=== PATIENT | male | born 1980 | race Caucasian/White ===

== ENCOUNTER → 2019-04-30 08:35 | Outpatient (BNVA) | payer SELFPAY | PROVIDERS: Family Provider Family Medicine; PCP Family Medicine; Visit Provider Family Medicine | DX: F41.1 Generalized anxiety disorder (principal); K21.9 Gastro-esophageal reflux disease without esophagitis; E78.5 Hyperlipidemia, unspecified | CPT/HCPCS: 80053; 80061; 85025 ==

== ENCOUNTER 2019-10-13 09:20 | Outpatient (CLI) | payer BC, SELFPAY ==
--- NOTE | 2019-10-13 09:00 | PFTS_ITS ---
Date of Study:10/13/19 Date of Dictation: MECHANICS: Forced vital capacity (FVC) is normal. Forced expiratory volume in one second (FEV1) is normal. FEV1/FVC is normal. FLOW VOLUME LOOP: Normal. LUNG VOLUMES: Not measured DIFFUSING CAPACITY FOR CARBON MONOXIDE: Not measured INTERPRETATION: The spirometry is normal. There is no significant postbronchodilator response. MTDD
== END 2019-10-13 09:21 | disposition home or self-care (01) ==
PROVIDERS: Family Provider Family Medicine; PCP Family Medicine; Visit Provider Family Medicine
DX: J45.909 Unspecified asthma, uncomplicated (principal)
CPT/HCPCS: 94060; J7611

== ENCOUNTER → 2019-10-27 07:48 | Outpatient (BNVA) | payer BC, SELFPAY | PROVIDERS: Family Provider Family Medicine; PCP Family Medicine; Visit Provider Specialist | DX: R20.0 Anesthesia of skin (principal); R20.2 Paresthesia of skin | CPT/HCPCS: 95908 ==

== ENCOUNTER 2019-11-02 08:28 | Outpatient (CLI) | payer BC, SELFPAY ==
--- NOTE | 2019-11-02 08:30 | XR_ITS ---
WS: [id number] CERVICAL SPINE TECHNIQUE: 3 views of the cervical spine CLINICAL INFORMATION: right upper extremity numbness COMPARISON: None. FINDINGS: Straightening of the normal cervical lordosis. Normal C1-C2 articulation. Mild facet arthropathy. Min imal spondylitic changes. Normal prevertebral soft tissues. IMPRESSION: Normal cervical spine
--- NOTE | 2019-11-02 09:00 | XR_ITS ---
WS: [id number] SHOULDER RIGHT TECHNIQUE: 3 views of the right shoulder CLINICAL INFORMATION: right upper extremity numbness COMPARISON: None. FINDINGS: Normal acromioclavicular joint. Normal glenohumeral joint. Acromion is normal in appearance. Normal g lenoid. No evidence of acute fracture dislocation. XR/XR shoulder RT min 2V* [id number] IMPRESSION: Normal right shoulder.
== END 2019-11-02 08:29 | disposition home or self-care (01) ==
LOC: RADWPI 08:30
PROVIDERS: Family Provider Family Medicine; PCP Family Medicine; Visit Provider Family Medicine
DX: R20.0 Anesthesia of skin (principal)
CPT/HCPCS: 72040; 73030

== ENCOUNTER 2023-09-02 11:32 | Inpatient (IN) | payer BC, MEDICAID, SELFPAY ==
[2023-09-02 11:39] VITALS: BP 137/95; PULSE 139; TEMP 37.1; O2SAT 96; BMI 25.1
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
--- NOTE | 2023-09-02 11:56 | XRR_ITS ---
PROCEDURE INFORMATION: Exam: XR Right Wrist Exam date and time: 09/02/2023 12:06 PM Age: 43 years old Clinical indication: Injury or trauma; Other: Handcuff pain; Blunt trauma (contusions or hematomas); Wrist; Right TECHNIQUE: Imaging protocol: Radiologic exam of the right wrist. Views: 3 or more views. COMPARISON: No relevant prior studies available. FINDINGS: Bones/joints: Normal. Soft tissues: Normal. XR/XR wrist RT min 3V* [id number] IMPRESSION: No acute findings.
--- NOTE | 2023-09-02 12:00 | ECG_ITS ---
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 Measurements Intervals [place] Rate: 103 P: 81 MO: 138 QRS: -26 QRSD: 80 T: 83 QT: 322 QTc: 422 Interpretive Statements SINUS TACHYCARDIA BORDERLINE LEFT AXIS DEVIATION [QRS AXIS < -20] ABNORMAL RHYTHM ECG No previous ECG available for comparison Electronically Signed On 09-02-2023 21:56:44 CDT by Sina Collins M.D. [email or web address] hillcrest hospitalRuffaloCODY/[email or web address]/[id number]
--- NOTE | 2023-09-02 12:00 | PC.NURSE ---
96 hour hold rights read and reviewed with patient. Patient verbalized understandings. Copy of rights given to patient.
[2023-09-02 12:17] LABS: Basophils # 0.1 10^3/uL (0.0-0.1); Basophils % 0.8 %; Eosinophils # 0.1 10^3/uL (0.0-0.8); Eosinophils % 0.5 %; Hematocrit 48.5 % (37-53); Lymphocytes # 2.2 10^3/uL (0.8-4.8); Lymphocytes % 20.3 %; Mean Corpuscular Hemoglobin 28.8 pg (27-33); Mean Corpuscular Volume 87.4 fl (82-101); Mean Platelet Volume 9.8 fL (7.4-10.4); Monocytes # 0.8 10^3/uL (0.2-0.9); Monocytes % 7.6 %; Neutrophils # 7.51 10^3/uL (1.8-7.7); Neutrophils % 70.5 %; Nucleated Red Blood Cells % 0 %; Platelet Count 313 10^3/cmm (157-399); Red Blood Count 5.55 10^6/uL (3.85-5.65); Red Cell Distribution Width 15.5 % (12.1-15.1); White Blood Count 10.64 10^3/uL (3.29-11.43)
[2023-09-02 12:43] LABS: Alanine Aminotransferase 17 U/L (0-41); Albumin Level 4.7 g/dL (3.5-5.2); Alkaline Phosphatase 137 U/L (40-130); Anion Gap 22.5 (5-19); Aspartate Amino Transferase 27 U/L (0-40); Blood Urea Nitrogen 15 mg/dL (6-20); Carbon Dioxide 22 mmol/L (22-29); Chloride 101 mmol/L (98-107); Globulin 3.4 g/dL (1.3-4.6); Glomerular Filtration Rate 80.8 mL/min (90-130); Glucose 95 mg/dL (65-115); Osmolality Calculated 293 mOsm/kg (285-295); Potassium 4.5 mmol/L (3.5-5.1); Sodium 141 mmol/L (136-145); Total Bilirubin 0.8 mg/dL (0.15-1.2); Total Protein 8.1 g/dL (6.6-8.7)
[2023-09-02 12:44] LABS: Acetaminophen < 5.0 ug/mL (10-30); Alcohol Level < 10 mg/dL (0-10); Salicylate < 0.3 mg/dL (3-10)
[2023-09-02 13:01] LABS: Amphetamines Screen Urine Negative (Negative); Barbiturates Screen Urine Negative (Negative); Benzodiazepines Screen Urine Positive (Negative); Cocaine Screen Urine Negative (Negative); Opiate Screen Urine Negative (Negative); PCP Screen Urine Negative (Negative); THC Screen Urine Positive (Negative)
--- NOTE | 2023-09-02 13:41 | PC.NURSE ---
DR. HA AND LOULOU ZAMAN HAVE BOTH BEEN MADE AWARE AND WITNESSED THAT PATIENT HAS MEDICATION BOTTLE WITH 'S NAME ON BOTTLE. BOTTLE REMAINS WITH PATIENT'S BELONGINGS.
[2023-09-02 14:00] VITALS: BP 134/82; PULSE 94; RESP 16; TEMP 36.7; O2SAT 100
[2023-09-02 14:05] VITALS: BP 137/95; PULSE 139; TEMP 37.1; O2SAT 96
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
[2023-09-02] MEDS: ATORVASTATIN 10 MG 1 EACH PO (20:36)
--- NOTE | 2023-09-02 20:53 | PC.NURSE ---
Pt taken down for head CT by housekeeping worker and security.
--- NOTE | 2023-09-02 21:02 | PC.NURSE ---
Pt back on unit.
[2023-09-02 21:32] VITALS: BP 115/79; PULSE 97; RESP 14; TEMP 36.4; O2SAT 99
[2023-09-03 06:00] VITALS: BP 114/83; PULSE 110; RESP 13; O2SAT 96
[2023-09-03] MEDS: citalopram 20 mg Tablet 40 MG PO (09:23)
[2023-09-03] MEDS: pantoprazole DR 40 mg Tablet PO (09:24)
[2023-09-03] MEDS: sertraline 50 mg Tablet PO (09:24)
[2023-09-03] MEDS: metoprolol succinate ER (24 HR) 25 mg Tablet PO (09:24)
--- NOTE | 2023-09-03 09:26 | P.NPUHP_ITS ---
Providers/Chief Complaint 2 Admitting Physician: Milind Mckay MD Primary Care Provider: Estefanía Coon DO Chief Complaint: 96 Hold HPI NPU History of Present Illness Will Osman is a 43 year old male with no previous history of inpatient psychiatric hospitalization. Who presented on a 96-hour hold to [facility] after the patient had allegedly taken excess amounts of alprazolam. The patient was admitted to the neuropsychiatric unit for further evaluation and treatment. Patient had stated that he had gone camping with his on 09/29/2023. He states that he had an argument with his and had proceeded to return back to his home while leaving his there. He states that he had plans to have his later dropped back off at the home. He states that upon arriving at home, he had consumed large amounts of marijuana to the extent that he was significantly high. He reports that his returned home earlier than expected and the argument that had begun in the camping outing resumed at home. He states that eventually the police had arrived on the scene as the had allegedly contacted them. He states that the police officers had been informed by the that the patient may have taken all of his Xanax despite the patient ever suggesting this. He states that he had realized that the problems were escalating and he was agreeable to being taken away by the police and he [facility] promptly [facility] 24 hours. He states upon release from [facility] they had presented him with a warrant for him to be placed on a 96-hour hold due to concerns about him having taken Xanax and having made suicidal statements. Patient denies any suicidal or homicidal thoughts. He had reported that he has suffered from generalized anxiety disorder for years. He reports having difficulties with managing chronic worry. 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 He reports that he has had panic attacks consisting of chest pain shortness of breath numbing and tingling in his fingers and difficulty swallowing that lasted less than 20 minutes. He reports that these attacks occur with triggers as well as without triggers. He reports that they have been substantially reduced to the point that he only needs to take Xanax once or twice a month for these attacks. He denied any agoraphobia. He does report that increased stress has a tendency to cause him to have panic attacks. He behaviorally denies having consumed excess quantities of Xanax but admits that he had used a substantial quantity of marijuana and admits to being quite intoxicated at that time. He reports having periods of depression for the past 10+ years that occur very infrequently typically characterized by low motivation, low energy, and occasional suicidal thoughts with no history of attempts. He reports these periods of depressed mood last less than a week typically and occur only a few times a year. Patient is also endorsed having periods of hypomania that occur less frequently as well possibly 3-4 times per year with decreased need for sleep, high energy, rapid speech and racing thoughts but states that these have been consistent and brief in duration over the past 10 years. He reports that normally his mood is level and states that his anxiety is chronically present. He denied any history of psychotic symptoms. Denied any change in appetite. He reports no worsening psychosocial stressors.He reports compliance with his psychiatric medications. He denies any drug or alcohol use other than marijuana. Inpatient psychiatric history: None reported Outpatient psychiatric history: He reports previous outpatient treatment for mental health has been through his primary care physician and states that he has had previous trials on another antidepressant and possibly the use of Seroquel at night. He is currently not receiving any psychotherapy. Substance abuse history: None reported with no history of significant alcohol or drug use other than the use of marijuana for her anxiety per patient. Medical history: Asthma, hypercholesterolemia by history Surgical history: None Allergies: Codeine/penicillin Current medications: Xanax 1 mg as needed as needed for panic attacks, albuterol inhaler, Celexa 40 mg at night, Lunesta 1 mg at night, metoprolol, Legal history: None Family psychiatric history: Bipolar disorder and maternal grandmother and mother. history: None Developmental history: Noncontributory Social history: The patient was born in [facility] and raised by his biological parents. He has 5 siblings 4 of whom were adopted. He had graduated high school and attended college having earned his degree in criminology and sociology. He had begun to work for the [employer] and had retired after 20 years of service there for years ago. He has been only once and currently lives with his and his son who is 20 years old. He has 3 other adult children who live outside of the home. 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 He denied any history of trauma during his childhood or adulthood. He currently lives in [facility]. Meds NPU Home Medications Medication Instructions Recorded Confirmed Last Taken Type alprazolam 1 mg tablet (Xanax) 1 mg PO DAILY PRN anxiety 90 days 06/02/19 09/02/23 Unknown Rx #30 tabs budesonide-formoterol HFA 160 2 puff inhalation Q12H #10.2 grams 09/17/19 09/02/23 08/31/23 Rx mcg-4.5 mcg/actuation aerosol inhaler (Symbicort) albuterol sulfate 90 mcg/actuation 2 puff inhalation Q6H PRN 03/01/20 09/02/23 Unknown Rx aerosol inhaler (Ventolin HFA) shortness of breath 90 days #3 multiple units atorvastatin 10 mg tablet 10 mg PO BEDTIME 09/02/23 09/02/23 Unknown History citalopram 40 mg tablet 40 mg PO QPM 09/02/23 09/02/23 08/31/23 History eszopiclone 1 mg tablet 1 mg PO QPM PRN Insomnia 09/02/23 09/02/23 Unknown History fexofenadine 180 mg tablet 180 mg PO QPM 09/02/23 09/02/23 08/31/23 History (Jil Allergy) metoprolol succinate 25 mg 25 mg PO DAILY 09/02/23 09/02/23 Unknown History tablet,extended release 24 hr pantoprazole 20 mg tablet,delayed 20 mg PO DAILY 09/02/23 09/02/23 Unknown History release sertraline 50 mg tablet 50 mg PO DAILY 09/02/23 09/02/23 Unknown History Allergies Allergy/AdvReac Type Severity Reaction Status Date / Time codeine Allergy ALGY-Fever Verified 09/02/23 17:29 Penicillins AdvReac Mild ALGY-Rash Verified 09/02/23 17:29 PFSH NPU 2 PFSH: Medical History (Updated 09/03/23 @ 13:52 by Milind Mckay MD) Asthma Allergic rhinitis Hyperlipidemia CLARITA (generalized anxiety disorder) Surgical History No pertinent past surgical history Family History (Updated 09/02/23 @ 17:30 by Jessica Cuevas RN) Grandmother Psychiatric illness Other Hypertension Social History Smoking and tobacco/nicotine status: former use of tobacco/nicotine Alcohol intake: current Alcohol intake frequency: holidays/special occasions only Substance/Drug Use: never Current gender identity: Male Mental Status Exam 2 MSE Comments: Patient is an anxious male who appeared his stated age with fair hygiene and normal gait. There was no evidence of any abnormal involuntary motor movements tics or tremors appreciated. His speech was normal in regards to rate rhythm and prosody. His mood was described as all right. His affect appeared slightly anxious. His thought process was linear logical and goal-directed. His thought content showed no evidence of active homicidal or suicidal ideation. There was no clear evidence of delusional thinking. His attention span appeared fair. He did not appear to be responding to internal stimuli. His recent remote memory were intact. He was alert and oriented to person place time and situation. His insight is partial. His judgment is fair. His impulse control appeared limited. Vitals/I&O/Wt Last Vital Signs Temp 97.5 F L 09/02/23 21:32 Pulse 110 H 09/03/23 06:00 Resp 13 09/03/23 06:00 BP 114/83 09/03/23 06:00 Pulse Ox 96 09/03/23 06:00 O2 Del Method Room Air 09/03/23 06:00 Weight last 48 hrs Weight 81.647 kg Data NPU 09/02/23 11:59 09/02/23 11:59 A&P Assessment and plan (1) Cyclothymic disorder: (2) CLARITA (generalized anxiety disorder): (3) Panic attacks: Plan 43-year-old male with no previous inpatient hospitalization admitted involuntarily with a history of depression, generalized anxiety disorder and panic attacks with reports of excess use of marijuana but denying having misused Xanax. #1.? Engage patient in individual milieu and group therapy.? #2? Encourage sober living treatment after discharge at the highest level of care to which he is willing to commit. #3??? Consolidate and clarify outpatient medications. #4?? TO-15 minute checks? #5?? Will attempt to gather collateral information Involuntary Hold Information 2 96 Hour Hold: 96 Hour Involuntary Admission: Yes 96 Hour Hold Ending Date: 09/08/23 96 Hour Hold Ending Time: 11:45 Attestations NPU 2 Medical Necessity Statement*: Inpatient hospitalization is medically necessary and deemed to ?be ?the clinically appropriate intervention ?at this time.? We will monitor/initiate medications and make changes as indicated.? The patient will be in the hospital for over 2 midnights.? The patient?s likely length of stay 2-3 days. Coding Level of Care Code Acute Code for Chg Fwd Diagnoses Cyclothymic disorder F34.0 CLARITA (generalized anxiety disorder) F41.1 Panic attacks F41.0
--- NOTE | 2023-09-03 11:10 | PC.NURSE ---
PT ON PHONE TALKING, CRYING, VISIBLY UPSET
[2023-09-03 13:50] VITALS: BP 114/83; PULSE 110; RESP 13; O2SAT 96
[2023-09-03 14:00] VITALS: BP 105/67; PULSE 83; RESP 16; TEMP 37.1; O2SAT 97
--- NOTE | 2023-09-03 14:38 | W.PM.NPUDCS ---
Diagnoses at Discharge Discharge Diagnosis (1) Cyclothymic disorder: Status: Acute (2) CLARITA (generalized anxiety disorder): Status: Acute (3) Panic attacks: Status: Acute Reason for Visit Reason for Visit: 96 Hold Brief History: History of Present Illness Will Osman is a 43 year old male with no previous history of inpatient psychiatric hospitalization. Who presented on a 96-hour hold to [facility] after the patient had allegedly taken excess amounts of alprazolam. The patient was admitted to the neuropsychiatric unit for further evaluation and treatment. Patient had stated that he had gone camping with his on 09/29/2023. He states that he had an argument with his and had proceeded to return back to his home while leaving his there. He states that he had plans to have his later dropped back off at the home. He states that upon arriving at home, he had consumed large amounts of marijuana to the extent that he was significantly high. He reports that his returned home earlier than expected and the argument that had begun in the camping outing resumed at home. He states that eventually the police had arrived on the scene as the had allegedly contacted them. He states that the police officers had been informed by the that the patient may have taken all of his Xanax despite the patient ever suggesting this. He states that he had realized that the problems were escalating and he was agreeable to being taken away by the police and he was promptly then [facility] where [facility] stayed for 24 hours. He states upon release from [facility] they had presented him with a warrant for him to be placed on a 96-hour hold due to concerns about him having taken Xanax and having made suicidal statements. Patient denies any suicidal or homicidal thoughts. He had reported that he has suffered from generalized anxiety disorder for years. He reports having difficulties with managing chronic worry. He reports that he takes marijuana on a daily basis for the past 4 years since he had retired from working in [employer]. He reports that he has had panic attacks consisting of chest pain shortness of breath numbing and tingling in his fingers and difficulty swallowing that lasted less than 20 minutes. He reports that these attacks occur with triggers as well as without triggers. He reports that they have been substantially reduced to the point that he only needs to take Xanax once or twice a month for these attacks. He denied any agoraphobia. He does report that increased stress has a tendency to cause him to have panic attacks. He behaviorally denies having consumed excess quantities of Xanax but admits that he had used a substantial quantity of marijuana and admits to being quite intoxicated at that time. He reports having periods of depression for the past 10+ years that occur very infrequently typically characterized by low motivation, low energy, and occasional suicidal thoughts with no history of attempts. He reports these periods of depressed mood last less than a week typically and occur only a few times a year. Patient is also endorsed having periods of hypomania that occur less frequently as well possibly 3-4 times per year with decreased need for sleep, high energy, rapid speech and racing thoughts but states that these have been consistent and brief in duration over the past 10 years. He reports that normally his mood is level and states that his anxiety is chronically present. He denied any history of psychotic symptoms. Denied any change in appetite. He reports no worsening psychosocial stressors.He reports compliance with his psychiatric medications. He denies any drug or alcohol use other than marijuana. Inpatient psychiatric history: None reported Outpatient psychiatric history: He reports previous outpatient treatment for mental health has been through his primary care physician and states that he has had previous trials on another antidepressant and possibly the use of Seroquel at night. He is currently not receiving any psychotherapy. Substance abuse history: None reported with no history of significant alcohol or drug use other than the use of marijuana for her anxiety per patient. Medical history: Asthma, hypercholesterolemia by history Surgical history: None Allergies: Codeine/penicillin Current medications: Xanax 1 mg as needed as needed for panic attacks, albuterol inhaler, Celexa 40 mg at night, Lunesta 1 mg at night, metoprolol, Legal history: None Family psychiatric history: Bipolar disorder and maternal grandmother and mother. history: None Developmental history: Noncontributory Social history: The patient was born in [facility] and raised by his biological parents. He has 5 siblings 4 of whom were adopted. He had graduated high school and attended college having earned his degree in criminology and sociology. He had begun to work for the [employer] and had retired after 20 years of service there for years ago. He has been only once and currently lives with his and his son who is 20 years old. He has 3 other adult children who live outside of the home. 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 He denied any history of trauma during his childhood or adulthood. He currently lives in [facility]. Hospital Course Hospital Course During the hospitalization, the patient had routine laboratory studies which were within normal limits except for a few outliers.? Additionally, there was a general medical evaluation which was also within normal limits and revealed no new acute processes. ?At the time of discharge, lethality was denied while mood and anxiety were well managed.? The patient endorsed a plan to avoid all drugs of abuse and follow up with the aftercare recommendations of the treatment team.? The patient was evaluated and deemed to be absent credible lethality and had achieved the maximum benefit from an inpatient hospitalization, and so was discharged. Zoloft was increased to 100mg and Celexa was to be decreased to 20mg daily for 5 days then discontinued on an outpatient basis. Lunesta was added at night to target insomnia. Involuntary Hold Information 96 Hour Hold: 96 Hour Involuntary Admission: Yes 96 Hour Hold Ending Date: 09/08/23 96 Hour Hold Ending Time: 11:45 Mental Status Exam MSE Comments: Patient is an anxious male who appeared his stated age with fair hygiene and normal gait. There was no evidence of any abnormal involuntary motor movements tics or tremors appreciated. His speech was normal in regards to rate rhythm and prosody. His mood was described as okay. His affect appeared slightly anxious. His thought process was linear logical and goal-directed. His thought content showed no evidence of active homicidal or suicidal ideation. There was no clear evidence of delusional thinking. His attention span appeared fair. He did not appear to be responding to internal stimuli. His recent remote memory were intact. He was alert and oriented to person place time and situation. His insight is partial. His judgment is fair. His impulse control appeared adequate at the time of discharge. Discharge Data Studies Completed and Pending: Completed Studies During Hospitalization Category Date Time Status CT head wo con* [id number] Routine Cat Scan 09/02/23 17:58 Completed XR wrist RT min 3 V* [id number] Stat Exams 09/02/23 11:56 Completed Radiology Impressions Wrist X-Ray 09/02/23 11:56 IMPRESSION: No acute findings. Head CT 09/02/23 17:58 IMPRESSION: No acute intracranial or calvarial abnormality. Laboratory Results WBC 10.64 10^3/uL (3. 29-11.43) 09/02/23 11:59 RBC 5.55 10^6/uL (3.8 5-5.65) 09/02/23 11:59 Hgb 16.00 g/dL (11.27 -16.99) 09/02/23 11:59 Hct 48.5 % (37-53) 09/02/23 11:59 MCV 87.4 fl (82-101) 09/02/23 11:59 MCH 28.8 pg (27-33) 09/02/23 11:59 MCHC 33.0 g/dL (30-55) 09/02/23 11:59 RDW 15.5 % (12.1-15.1 ) H 09/02/23 11:59 Plt Count 313 10^3/cmm (157 -399) 09/02/23 11:59 MPV 9.8 fL (7.4-10.4) 09/02/23 11:59 Neut % (Auto) 70.5 % 09/02/23 11:59 Lymph % (Auto) 20.3 % 09/02/23 11:59 [place] % (Auto) 7.6 % 09/02/23 11:59 Eos % (Auto) 0.5 % 09/02/23 11:59 Baso % (Auto) 0.8 % 09/02/23 11:59 Neut # (Auto) 7.51 10^3/uL (1.8 -7.7) 09/02/23 11:59 Lymph # (Auto) 2.2 10^3/uL (0.8- 4.8) 09/02/23 11:59 [place] # (Auto) 0.8 10^3/uL (0.2- 0.9) 09/02/23 11:59 Eos # (Auto) 0.1 10^3/uL (0.0- 0.8) 09/02/23 11:59 Baso # (Auto) 0.1 10^3/uL (0.0- 0.1) 09/02/23 11:59 Nucleated RBC % (a uto) 0 % 09/02/23 11:59 Nucleated RBCs # 0.0 /100WBC 09/02/23 11:59 Sodium 141 mmol/L (136-1 45) 09/02/23 11:59 Potassium 4.5 mmol/L (3.5-5 .1) 09/02/23 11:59 Chloride 101 mmol/L (98-10 7) 09/02/23 11:59 Carbon Dioxide 22 mmol/L (22-29) 09/02/23 11:59 Anion Gap 22.5 (5-19) H 09/02/23 11:59 BUN 15 mg/dL (6-20) 09/02/23 11:59 Creatinine 1.0 mg/dL (0.7-1. 2) 09/02/23 11:59 GFR Calculation 80.8 mL/min (90-1 30) L 09/02/23 11:59 Glucose 95 mg/dL (65-115) 09/02/23 11:59 Calculated Osmolal ity 293 mOsm/kg (285- 295) 09/02/23 11:59 Calcium 10.0 mg/dL (8.5-1 0.5) 09/02/23 11:59 Total Bilirubin 0.8 mg/dL (0.15-1 .2) 09/02/23 11:59 AST 27 U/L (0-40) 09/02/23 11:59 ALT 17 U/L (0-41) 09/02/23 11:59 Alkaline Phosphata se 137 U/L (40-130) H 09/02/23 11:59 Total Protein 8.1 g/dL (6.6-8.7 ) 09/02/23 11:59 Albumin 4.7 g/dL (3.5-5.2 ) 09/02/23 11:59 Globulin 3.4 g/dL (1.3-4.6 ) 09/02/23 11:59 Salicylates < 0.3 mg/dL (3-10 ) L 09/02/23 11:59 Urine Opiates Scre en Negative ng/mL (N egative) 09/02/23 12:19 Acetaminophen < 5.0 ug/mL (10-3 0) L 09/02/23 11:59 Ur Barbiturates Sc reen Negative ng/mL (N egative) 09/02/23 12:19 Ur Phencyclidine S crn Negative ng/mL (N egative) 09/02/23 12:19 Ur Amphetamines Sc reen Negative ng/mL (N egative) 09/02/23 12:19 U Benzodiazepines Scrn Positive ng/mL (N egative) H 09/02/23 12:19 Urine Cocaine Scre en Negative ng/mL (N egative) 09/02/23 12:19 U Marijuana (THC) Screen Positive ng/mL (N egative) H 09/02/23 12:19 Ethyl Alcohol < 10 mg/dL (0-10) 09/02/23 11:59 Vitals: Last Vital Signs Temp 97.5 F L 09/02/23 21:32 Pulse 110 H 09/03/23 13:50 Resp 13 09/03/23 13:50 BP 114/83 09/03/23 13:50 Pulse Ox 96 09/03/23 13:50 O2 Del Method Room Air 09/03/23 06:00 Discharge Plan Discharge Patient Disposition: Home Condition: Stable Prescriptions: New citalopram 20 mg Tablet 20 mg PO DAILY 5 Days Qty: 5 0RF Rx Instructions: Take for 5 days then discontinue Lunesta 3 mg tablet 3 mg PO .at night Qty: 14 1RF Zoloft 100 mg tablet 100 mg PO DAILY Qty: 30 1RF alprazolam 1 mg tablet 1 mg PO DAILY PRN (Reason: panic attack(s)) 30 Days Qty: 7 1RF Rx Instructions: Take one tablet as needed for panic attack not to exceed 2mg in 24 hours. Continued budesonide-formoterol [Symbicort] 160-4.5 mcg/actuation HFA aerosol inhaler 2 puff INHALATION Q12H Qty: 10.2 0RF albuterol sulfate [Ventolin HFA] 90 mcg/actuation HFA aerosol inhaler 2 puff INHALATION Q6H PRN (Reason: shortness of breath) 90 Days Qty: 3 3RF pantoprazole 20 mg tablet,delayed release (DR/EC) 20 mg PO DAILY fexofenadine [Jil Allergy] 180 mg tablet 180 mg PO QPM atorvastatin 10 mg tablet 10 mg PO BEDTIME metoprolol succinate 25 mg tablet extended release 24 hr 25 mg PO DAILY Discontinued alprazolam [Xanax] 1 mg tablet 1 mg PO DAILY PRN (Reason: anxiety) 90 Days Qty: 30 1RF citalopram 40 mg tablet 40 mg PO QPM eszopiclone 1 mg tablet 1 mg PO QPM PRN (Reason: Insomnia) sertraline 50 mg tablet 50 mg PO DAILY Discharge Orders: Discharge Order (Routine); Ordered 09/03/23 Ordered By: Milind Mckay Referrals: Izabella Austin [Other] (Friday at 9am) Discharge Diet: Usual diet Discharge Activity: Resume usual activity Patient Instructions: Help Prevent Suicide (DC), Suicide Prevention (DC), Opioid Safety Activity Restrictions/Additional Instructions: Take 1/2 tablet of Citalopram 40mg (own supply) for 5 days then discontinue. Discharge Attestations NPU Time Spent in Discharge Care*: less than 30 min Specific Discharge Activities: Specific discharge activities: educating patient Coding Level of Care Code Acute Code for Chg Fwd Diagnoses Cyclothymic disorder F34.0 CLARITA (generalized anxiety disorder) F41.1 Panic attacks F41.0
== END 2023-09-03 15:46 | disposition home or self-care (01) | DRG 883 ==
LOC: ER 13:13 → NP 13:15
PROVIDERS: Physician Assistant; Admitting Provider Psychiatry & Neurology Psychiatry; Emergency Provider Family Medicine; PCP Family Medicine; Visit Provider Psychiatry & Neurology Psychiatry
DX: F34.0 Cyclothymic disorder (principal); F41.1 Generalized anxiety disorder; F41.0 Panic disorder [episodic paroxysmal anxiety]
CPT/HCPCS: 36415; 70450; 73110; 80053; 80306; 80307; 85025; 93005; 97165; 99285